=== PATIENT | female | born 1945 | race Native Hawaiian/Other Pacific Islander ===

== ENCOUNTER 2020-10-13 12:30 | Outpatient (CLI) | payer OTHER | END 2020-10-13 19:14 | disposition home or self-care (01) | LOC: US 12:30 | PROVIDERS: ATTEND Internal Medicine | DX: R60.0 Localized edema (principal); M79.662 Pain in left lower leg; M79.661 Pain in right lower leg; I73.9 Peripheral vascular disease, unspecified ==